=== PATIENT | female | born 1950 | race Caucasian/White ===

== ENCOUNTER 2016-07-30 14:53 | Outpatient (CLI) | payer MEDICARE, OTHER | END 2016-07-30 14:54 | disposition home or self-care (01) | DX: K76.0 Fatty (change of) liver, not elsewhere classified (principal) ==

== ENCOUNTER 2019-03-07 14:48 | Outpatient (CLI) | payer MEDICARE, OTHER ==
--- NOTE | 2019-03-07 15:45 | XRAY Report ---
Reason: PAIN IN RIGHT HIP JOINT, BACK PAIN Procedure Date: 03/07/2019 Accession Number: [id number] / [id number] Procedure: XRS - Hip w/Pelvis 2-3V RT CPT Code: FULL RESULT: EXAM: RIGHT HIP RADIOGRAPHY EXAM DATE: 03/07/2019 03:16 PM. CLINICAL HISTORY: Pain in right hip joint, back pain. COMPARISON: LUMBAR SPINE 2 VIEW 03/07/2019 3:09 PM. TECHNIQUE: 2 views. FINDINGS: Bones: Normal. No fractures or bone lesion. Joints: Bilateral joint space narrowing of the femoral acetabular joints is noted, overall mild to moderate with marginal osteophytosis. Mild degenerative changes of the pubic symphysis are noted. SI joints are congruent. Soft Tissues: Normal. No soft tissue swelling. IMPRESSION: Degenerative changes of the right hip. RADIA
--- NOTE | 2019-03-07 15:48 | XRAY Report ---
Reason: CHRONIC LOW BACK PAIN Procedure Date: 03/07/2019 Accession Number: [id number] / [id number] Procedure: XRS - Lumbar Spine 2 View CPT Code: FULL RESULT: EXAM: LUMBOSACRAL SPINE RADIOGRAPHY EXAM DATE: 03/07/2019 03:16 PM. CLINICAL HISTORY: CHRONIC LOW BACK PAIN. COMPARISONS: None. TECHNIQUE: 3 views. FINDINGS: Alignment: Approximately 7 mm of anterolisthesis of L4 on L5 in the setting of an L4 pars defect. Additionally, there may be up to 3 mm of anterolisthesis of L5 on S1 without definite pars defect visualized. No scoliosis. Bones: Five [id number] lumbar vertebral bodies are present. No fractures or bone lesions. Disks: With prominent marginal osteophytosis at L1-L2 and L2-L3. Facets: No degenerative changes. Sacroiliac Joints: Unremarkable. Soft Tissues: Normal. The visualized bowel gas pattern is normal. IMPRESSION: Anterolisthesis of L4 on L5 with pars defect as described. RADIA
== END 2019-03-07 14:49 | disposition home or self-care (01) ==
LOC: DI.S 14:48
PROVIDERS: ATTEND Physician Assistant
DX: M43.06 Spondylolysis, lumbar region (principal); M16.11 Unilateral primary osteoarthritis, right hip
CPT/HCPCS: 72100

== ENCOUNTER 2019-03-24 14:11 | Outpatient (CLI) | payer MEDICARE, OTHER ==
--- NOTE | 2019-03-27 08:52 | Mammography Report ---
Reason: SCREENING MAMMO Procedure Date: 03/24/2019 Accession Number: [id number] / [id number] Procedure: JAYESH - Screening Mammo w/Live CPT Code: Final Report FULL RESULT: EXAM: Screening Mammo w/Live DATE: 03/24/2019 3:09 PM CLINICAL HISTORY: Screening encounter. Family history of breast cancer in the mother at the age of 30. New baseline exam. TECHNIQUE: (B) - Bilateral CC and MLO views were obtained. COMPARISON: None PARENCHYMAL PATTERN: (D) - The breast(s) demonstrate(s) heterogeneously dense fibroglandular parenchyma. FINDINGS: In the right breast posteriorly and laterally at the 9:00 position is a isodense 0.5 cm nodule with possible architectural distortion which requires additional spot views and ultrasound for characterization. There are no suspicious masses, calcifications, or areas of distortion in the left breast. IMPRESSION: Incomplete examination. BI-RADS category 0. RECOMMENDATION: (ADDMU) - Additional views using both Mammography and Ultrasound recommended. Right breast axillary tail. Please note that additional examination may potentially be obviated if previous mammographic examinations are made available for comparison. BI-RADS CATEGORY: (0) - Incomplete Examination - need additional evaluation. STANDARD QUALIFYING STATEMENTS: 1. This examination was not reviewed with the aid of Computer-Aided Detection (CAD). 2. A negative or benign imaging report should not preclude biopsy if clinically suspicious findings are present. 3. Dense breasts may obscure an underlying neoplasm. 4. This examination was reviewed with the aid of 3D breast imaging (tomosynthesis).
== END 2019-03-24 14:12 | disposition home or self-care (01) ==
LOC: DI 14:11
DX: Z12.31 Encounter for screening mammogram for malignant neoplasm of breast (principal); R92.8 Other abnormal and inconclusive findings on diagnostic imaging of breast; Z80.3 Family history of malignant neoplasm of breast
CPT/HCPCS: 77063; 77067

== ENCOUNTER 2019-05-05 09:53 | Outpatient (CLI) | payer MEDICARE, OTHER ==
--- NOTE | 2019-05-05 14:03 | Mammography Report ---
Reason: ABN MAMMO - SPEC VIEWS RT Procedure Date: 05/05/2019 Accession Number: [id number] / [id number] Procedure: JAYESH - Diagnostic Dig RT CPT Code: Final Report FULL RESULT: EXAM: Diagnostic Dig RT DATE: 05/05/2019 10:32 AM CLINICAL HISTORY: Diagnostic examination. The patient is recalled from screening for a right breast nodule. TECHNIQUE: (R) - Right right spot CC, spot MLO, ML images are obtained. Focused right breast ultrasound is performed. COMPARISON: 03/24/2019. PARENCHYMAL PATTERN: (D) - The breast(s) demonstrate(s) heterogeneously dense fibroglandular parenchyma. FINDINGS: The small isodense well-circumscribed nodule is confirmed, 0.6 cm mammographically. Focused right breast ultrasound of the same area is performed which demonstrates a wider than tall hypoechoic well-defined lesion with increased through transmission and suggestion of internal septations which measures 0.3 x 0.1 x 0.7 cm and corresponds in position and shape to the mammographic finding, complex cluster of microcysts, typically benign. Location 10:00 8 cm from the nipple. There are no suspicious masses, calcifications, or areas of distortion. IMPRESSION: Benign findings. BI-RADS category 2. RECOMMENDATION: (ANNUAL) - Recommend routine annual screening mammography. BI-RADS CATEGORY: (2) - Benign Findings. STANDARD QUALIFYING STATEMENTS: 1. This examination was not reviewed with the aid of Computer-Aided Detection (CAD). 2. A negative or benign imaging report should not preclude biopsy if clinically suspicious findings are present. 3. Dense breasts may obscure an underlying neoplasm. 4. This examination was reviewed with the aid of 3D breast imaging (tomosynthesis).
== END 2019-05-05 09:54 | disposition home or self-care (01) ==
LOC: DI 09:53
PROVIDERS: ATTEND Physician Assistant
DX: R92.8 Other abnormal and inconclusive findings on diagnostic imaging of breast (principal); N60.11 Diffuse cystic mastopathy of right breast
CPT/HCPCS: 76642

== ENCOUNTER 2020-04-30 09:05 | Outpatient (CLI) | payer MEDICARE, OTHER | END 2020-04-30 09:06 | disposition home or self-care (01) | LOC: DI 09:05 | PROVIDERS: ATTEND Registered Nurse | DX: I11.9 Hypertensive heart disease without heart failure (principal); I49.3 Ventricular premature depolarization | CPT/HCPCS: 93306 ==

== ENCOUNTER 2020-06-18 14:06 | Outpatient (CLI) | payer MEDICARE, OTHER ==
[2020-06-18 15:27] VITALS: BP 140/68
--- NOTE | 2020-06-18 15:27 | SLEEP CARE CONSULTATION ---
Information from patient questionnaire entered by Alejandrina Singh. I have reviewed and concur with the information entered by Alejandrina Singh. This document represents the service I personally performed and the decisions made by me, Stefani Narvaez ARNP. History of Present Illness Service Date and Time: 06/18/2020 1406 Reason for Visit: New patient Chief Complaint: reports: Other (Never had these symptoms). denies: Unrefreshed sleep, Snoring, Excessive daytime sleepiness, Observed pauses in breathing, Fatigue, Frequent awakenings at night Date of Onset: Never Usual bedtime: 9:00-11 PM Time it takes to fall asleep: < 30 min Snores at night: No Observed to quit breathing while asleep: No Sleeps alone due to snoring: No Number of times waking at night: 1 x Reasons for waking at night: reports: Bathroom, Other (some occasional oral dryness). denies: Choking, Snoring, Gasping for air Toss, Turn, or Twitch while sleeping: No Recalls having dreams: Yes (rarely) Usually gets out of bed at: 730 - 8 Feels refreshed in the morning: Yes Morning headache: No Sleepy or fatigued during the day: No Ever fallen asleep while driving: No Takes day naps: No Dreams during day naps: No Prior sleep studies: No Additional HPI information: I had the pleasure of seeing CHERYL KERR today regarding the possibility of her having a sleep disorder. She was referred here by her doctor due to her wors ening hypertension. She denies any history of snoring, unrefreshed sleep, excessive daytime sleepiness, fatigue or frequent night awakenings. She states she was on Metformin for about 4-5 years without the diagnosis of diabetes. They watched her A1C and it is currently under 6. They recently took her off of the Metformin and will be rechecking her A1C in 2 weeks. She states she wakes up refreshed in the morning despite getting up on average nightly to let her dogs out to go to the bathroom. She states she does not snore or have pauses in breathing, at least her late never told her she did and her daughter whom she shares a room with also has told her as well. She states she is not fatigues or has any trouble with sleepiness during the day. She is just here because her doctor wanted to have her evaluated due to her increasing blood pressure despite blood pressure medication. Her medication was recently changed and she is keeping track at home with improving numbers being seen. 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 Patient is / and lives in [place]. Have you smoked in the past 12 months: No Alcohol use: Yes Alcohol amount and frequency: 1, 1-2 x / week Caffeine use: Yes Caffeine amount and frequency: 1 cup coffee in am and green tea during the day Family History Family history of sleep disordered breathing: No Allergies and Home Medications Drug allergies reviewed: Yes (NKDA) Home medication list reviewed: Yes Allergy and home medication list: Apple Cider Vinegar 500 mg aspirin 81 mg atorvastatin 10 mg Spirolactone 25 mg Celebrex 200 mg Biotin 70462 mcg Losartan potassium 50 mg Potassium gluconate 550 mg probiotic Azo cranberry B complex vitamins Dolores bergamot CoQ10 Fish oil Ibuprofen, as needed Review of Systems Weight loss over past 5 years: 30 Cardiovascular: reports: high blood pressure (?) Respiratory: reports: shortness of breath (upon extreme exertion) Urinary: reports: frequency (RT med) Ear/Nose/Throat: reports: wisdom teeth removed. denies: tonsillectomy (did not ever have these) Musculoskeletal: reports: joint pain (stiffness in AM) Physical Exam Blood Pressure: 140/68 Cuff size: wrist Heart Rate: 67 O2 Saturation: 98 Height: 5 ft 3 in Weight: 183 lb Body Mass Index: 32.4 BMI Classification: Obese Neck circumference: 15 (inches) Nostrils: patent to airflow Turbinates: normal Septum: deviated left Mouth and throat: narrow oropharynx Soft palate: long Uvula visualization: 50% Mallampati Class II Tongue: normal in size Tonsils: small Neck: normal w/o lymphadenopathy or thyromegaly Heart: regular rate and rhythm, murmur Lungs: clear bilaterally Impression and Plan 1. Suspected Obstructive Sleep Apnea-Hypopnea Syndrome, as suggested by a history of hypertension. She has no other symptoms at this time but does have a narrow oropharynx and is obese despite some recent weight loss. I reviewed with the patient that a narrow oropharynx and obesity are common predisposing factors for obstructive sleep apnea-hypopnea syndrome. I recommend to try to proceed to polysomnography to confirm the diagnosis and to assess severity. We will send to insurance for authorization to see if we can get the go ahead for a sleep study. If the patient has significant sleep disordered breathing, a manual CPAP titration study will also be performed to find the optimal treatment pressure. I informed the patient of what the sleep studies involve and after some discussion, obtained agreement to proceed. The pathophysiology of obstructive sleep apnea-hypopnea syndrome was discussed with the patient and health risks of cardiovascular and cerebrovascular disease if not treated. Patient agreed to plan. * Schedule polysomnography +- manual CPAP titration study and return in 1-2 weeks after the study to discuss result and initiate therapy. * Avoid alcohol, sedative and muscle relaxant around bedtime. * Attempt to lose weight. * Review instructions provided by trained office staff on how to prepare for the sleep study. * Return for follow-up after sleep study completed. Counseling Topics: Weight loss health impact Visit Type: In Office Time Spent with Patient (minutes): 32 Provider Statement: I spent 100% of the Face to Face Visit with the patient with greater than 50% spent counseling the patient and coordination of care.
== END 2020-06-18 14:07 | disposition home or self-care (01) ==
LOC: SC 14:06
PROVIDERS: ATTEND Nurse Practitioner Family
DX: I10 Essential (primary) hypertension (principal); E66.9 Obesity, unspecified; Z68.32 Body mass index [BMI] 32.0-32.9, adult
CPT/HCPCS: 99203; G0463; 99212

== ENCOUNTER 2020-06-26 09:50 | Outpatient (CLI) | payer MEDICARE, OTHER ==
--- NOTE | 2020-06-26 14:34 | Mammography Report ---
BILATERAL DIGITAL SCREENING MAMMOGRAM 3D/2D: 06/26/2020 CLINICAL: Routine screening. Comparison is made to exam dated: 03/24/2019 mammogram - [facility]. The tissue of both breasts is heterogeneously dense. This may lower the sensitivity of mammography. There is an oval low density asymmetry with an indistinct and circumscribed margin in the right breas t middle depth lateral region seen on the craniocaudal view only. No other significant masses, calcifications, or other findings are seen in either breast. IMPRESSION: INCOMPLETE: NEEDS ADDITIONAL IMAGING EVALUATION The oval low density asymmetry in the right breast is indeterminate. Mediolateral and spot compressi on views as well as additional views with possible ultrasound are recommended. This exam was interpreted at Station ID: [id number]. NOTE: For mammograms, a report in lay terms will be sent to the patient. Approximately 15% of breast malignancies will not be visualized mammographically. In the management of a palpable breast mass, a negative mammogram must not discourage biopsy of a clinically suspicious lesion. Electronically Signed By: Moi Matt M.D. ddmarley/karen:06/26/2020 10:37:06 ACR BI-RADS Category 0: Incomplete 3340F PARENCHYMAL PATTERN: (D) - The breast(s) demonstrate(s) heterogeneously dense fibroglandular vashti rose. BI-RADS CATEGORY: (0) - 0 Mammo and [place] [id number] Immediate follow-up LATERALITY: (B)
== END 2020-06-26 09:51 | disposition home or self-care (01) ==
LOC: DI.S 09:50
PROVIDERS: ATTEND Registered Nurse
DX: Z12.31 Encounter for screening mammogram for malignant neoplasm of breast (principal); R92.8 Other abnormal and inconclusive findings on diagnostic imaging of breast

== ENCOUNTER 2020-07-17 10:17 | Outpatient (CLI) | payer MEDICARE, OTHER ==
--- NOTE | 2020-07-18 10:15 | Mammography Report ---
UNILATERAL RIGHT DIGITAL DIAGNOSTIC MAMMOGRAM 3D/2D: 07/17/2020 CLINICAL: Additional evaluation requested from prior study. Patient returns today to evaluate an asym metry in the right breast. Comparison is made to exams dated: 06/26/2020 mammogram, 05/05/2019 mammogram, 05/05/2019 ultrasound, and 03/24/2019 mammogram - [facility]. The tissue of right breast is heterogeneousl y dense. This may lower the sensitivity of mammography. Prior asymmetry in the right breast in the superior lateral quadrant is no longer seen with additiona l views. No significant masses, calcifications, or other findings are seen in the breast. IMPRESSION: INCOMPLETE: NEEDS ADDITIONAL IMAGING EVALUATION Resolution of screening mammography abnormality with additional views. Ultrasound evaluation to confi rm resolution is recommended and was performed immediately following this exam. This exam was interpreted at Station ID: [id number]. NOTE: For mammograms, a report in lay terms will be sent to the patient. Approximately 15% of breast malignancies will not be visualized mammographically. In the management of a palpable breast mass, a negative mammogram must not discourage biopsy of a clinically suspicious lesion. Electronically Signed By: Jody collins/:07/17/2020 10:44:42 ACR BI-RADS Category 0: Incomplete 3340F PARENCHYMAL PATTERN: (D) - The breast(s) demonstrate(s) heterogeneously dense fibroglandular paremilyy rose. BI-RADS CATEGORY: (0) - 0 Ultrasound [id number] Immediate follow-up LATERALITY: (B)
--- NOTE | 2020-07-18 10:15 | Ultrasound Report ---
LIMITED ULTRASOUND OF RIGHT BREAST: 07/17/2020 CLINICAL: Patient returns today to evaluate an asymmetry in the right breast. Comparison is made to exams dated: 07/17/2020 mammogram, 06/26/2020 mammogram, 05/05/2019 mammogram, ultrasound, and 03/24/2019 mammogram - [facility]. Color flow ultrasound of the right breast 9-10 o'clock region was performed. Sosa scale images of th e real-time examination were reviewed. There are multiple possible oval and irregular areas of fibrocystic tissue or lymph nodes in the righ t breast superior lateral quadrant middle depth with the long axes parallel to the skin. These likel y correlate with mammography findings. Color flow imaging demonstrates that there is no vascularity present. No other unusual findings. IMPRESSION: PROBABLY BENIGN The multiple possible oval areas of fibrocystic tissue or lymph nodes in the right breast are most co nsistent with fibrocystic change and are probably benign. A follow-up right mammogram and an ultrasound in 6 months is recommended to demonstrate stability. Findings and recommendations were conveyed to the patient at time of exam. This exam was interpreted at Station ID: [id number]. Electronically Signed By: Jody collins/:07/17/2020 12:23:30 Ultrasound BI-RADS: 3 Probably benign BI-RADS CATEGORY: (3) - 3 Mammo and US [id number] 6 month follow-up LATERALITY: (R)
== END 2020-07-17 10:18 | disposition home or self-care (01) ==
LOC: DI 10:17
PROVIDERS: ATTEND Registered Nurse
DX: R92.2 Inconclusive mammogram (principal); N64.89 Other specified disorders of breast

== ENCOUNTER 2021-09-26 09:57 | Outpatient (CLI) | payer MEDICARE, OTHER ==
--- NOTE | 2021-09-26 16:39 | DEXA Report ---
PROCEDURE: Dexa Spine and/or Hip INDICATIONS: POST MENOPAUSAL TECHNIQUE: Dual energy x-ray absorptiometry (DXA) was performed on a [employer] System. Regions measur ed are the AP Spine, femoral neck, and if needed forearm. COMPARISON: None. FINDINGS: Lumbar Spine: Bone Mineral Density 1.399 g/cm/cm,T score 1.8, normal Left Hip: Bone Mineral Density 1.015 g/cm/cm,T score 0.1, normal Left Femoral Neck: Bone Mineral Density 0.812 g/cm/cm, T score -1.6, osteopenia (T score greater or equal to -1.0: NORMAL) (T score from -1.1 to -2.4: OSTEOPENIA) (T score less than or equal to -2.5 to: OSTEOPOROSIS) Impression: Osteopenia. Patients with diagnosis of osteoporosis or osteopenia should have regular bone mineral density assess ment. For those eligible for Medicare, routine testing is allowed once every 2 years. Testing frequ ency can be increased for patients who have rapidly progressing disease or for those who are receivin g medical therapy to restore bone mass. Reviewed by: Aimee Robin MD, PhD on 09/26/2021 4:38 PM PDT Approved by: Aimee Robin MD, PhD on 09/26/2021 4:38 PM PDT Station ID: [id number]
== END 2021-09-26 09:58 | disposition home or self-care (01) ==
LOC: DI 09:57
PROVIDERS: ATTEND Registered Nurse
DX: M85.88 Other specified disorders of bone density and structure, other site (principal); Z78.0 Asymptomatic menopausal state

== ENCOUNTER 2022-10-09 09:56 | Outpatient (CLI) | payer MEDICARE, OTHER ==
--- NOTE | 2022-10-12 12:54 | Mammography Report ---
BILATERAL DIGITAL DIAGNOSTIC MAMMOGRAM 3D/2D: 10/09/2022 CLINICAL: Patient returns for a 6 month follow up of the right breast, due for bilateral exam. Comparison is made to exams dated: 07/17/2020 mammogram, 06/26/2020 mammogram, 05/05/2019 mammogram, mammogram, and 07/17/2020 ultrasound - [facility]. Both breasts are heterogeneously dense, which may obscure small masses (category c / 51-75% glandular tissue). No significant masses, calcifications, or other findings are seen in either breast. IMPRESSION: INCOMPLETE: NEEDS ADDITIONAL IMAGING EVALUATION There is no abnormality seen in the right breast to correspond with the ultrasound finding. Targeted ultrasound is recommended for further evaluation of prior sonographic findings, which will be perfor med immediately following this exam. Based on the Tyrer Cuzick model (a risk assessment model) the patients lifetime risk is 15.3% and he r 10 year risk is 12.7%. According to the ACR, ACS, and NCCN guidelines, an annual breast MRI exam al noble with mammogram is recommended if the patients lifetime risk is 20% or greater. This exam was interpreted at Station ID: [id number]. NOTE: For mammograms, a report in lay terms will be sent to the patient. Approximately 15% of breast malignancies will not be visualized mammographically. In the management of a palpable breast mass, a negative mammogram must not discourage biopsy of a clinically suspicious lesion. Electronically Signed By: Pascual Macdonald M.D. ar/penrad:10/09/2022 13:23:33 ACR BI-RADS Category 0: Incomplete 3340F PARENCHYMAL PATTERN: (D) - The breast(s) demonstrate(s) heterogeneously dense fibroglandular vashti rose. BI-RADS CATEGORY: (0) - 0 Ultrasound [id number] Immediate follow-up LATERALITY: (R)
--- NOTE | 2022-10-12 12:54 | Ultrasound Report ---
LIMITED ULTRASOUND OF RIGHT BREAST: 10/09/2022 CLINICAL: Patient returns today to evaluate a focal asymmetry in the right breast. Comparison is made to exams dated: 05/05/2019 mammogram, 06/26/2020 mammogram, 07/17/2020 mammogram, ultrasound, 10/09/2022 mammogram, and 03/24/2019 mammogram - [facility]. Color flow ultrasound of the right breast 9-10 o'clock region was performed. Sosa scale images of th e real-time examination were reviewed. There are multiple stable benign oval areas of fibrocystic tissue in the right breast superior latera l quadrant middle depth with the long axis parallel to the skin. Color flow imaging demonstrates jesika t there is no vascularity present. These findings have not significantly changed when compared to t he prior exam from 07/17/2020, and are therefore considered benign. IMPRESSION: BENIGN There is no sonographic evidence of malignancy. The multiple stable oval areas of fibrocystic tissue in the right breast are consistent with fibrocys tic change and are benign. Return to annual mammogram screening schedule is recommended. This exam was interpreted at Station ID: [id number]. Electronically Signed By: Pascual patterson/karen:10/09/2022 13:28:57 letter sent: No_Letter Ultrasound BI-RADS: 2 Benign BI-RADS CATEGORY: (2) - 2 Mammogram [id number] return to screening LATERALITY: (B)
== END 2022-10-09 09:57 | disposition home or self-care (01) ==
LOC: DI 09:56
PROVIDERS: ATTEND Registered Nurse
DX: R92.8 Other abnormal and inconclusive findings on diagnostic imaging of breast (principal)